=== PATIENT | female | born 1965 | race Caucasian/White ===

== ENCOUNTER 2018-12-12 10:17 | Emergency (ER) | payer OTHER ==
[~2018-12-12] VITALS: Ht 172.7 cm; Wt 83.5 kg
--- OUTSIDE RECORDS SUMMARY | 2018-12-12 10:20 | XMS ---
PreManage Notification: MARCIN TRAYLOR [employer] Events No recent Security Events currently on file CRITERIA MET - [facility] 2 Visits in 30 Days CARE PROVIDERS SK[facility] PHONE: Unknown FREDERICK JARAMILLO [facility] PHONE: Unknown Zac has no Care Guidelines for this patient. [place] VISIT COUNT (12 MO.) [employer] TOTAL 2 NOTE: Visits indicate total known visits. ED/UCC VISIT TRACKING (12 MO.) 12/12/2018 10:18 [facility] [place] TYPE: Emergency COMPLAINT: - RAPID HEARTRATE 12/06/2018 16:03 [facility] OR TYPE: Emergency DIAGNOSES: - Migraine with aura, not intractable, without status migrainosus - CHEST PAIN ARM NUMBNESS BLURRED VISION - Other chest pain INPATIENT VISIT TRACKING (12 MO.) No inpatient visits to display in this time frame [email or web address]
[2018-12-12] MEDS ORDERED: DOXYCYCLINE HY100 MG PO (10:40)
[2018-12-12] MEDS ORDERED: ALPRAZOLAM OD0.25 MG PO (10:40)
[2018-12-12] MEDS ORDERED: COREG3.125 MG PO (11:39)
--- NOTE | 2018-12-12 13:40 | EKG ---
[facility] [address] [facility] [place], [place] [address] Signed Sinus tachycardia Nonspecific ST abnormality Abnormal ECG No previous ECGs available Confirmed by SARAH ONEILL DO ([id number]) on 12/12/2018 1:40:14 PM Electronically Signed By: SARAH ONEILL DO 12/12/18 1340 PATIENT NAME: MARCIN TRAYLOR Electrocardiogram DATE OF : 67 PHYSICIAN: SARAH ONEILL DO REPORT #: [id number] REPORT IS CONFIDENTIAL AND NOT TO BE RELEASED WITHOUT AUTHORIZATION
== END 2018-12-12 11:53 | disposition home or self-care (01) ==
LOC: ED 10:17
DX: R00.0 Tachycardia, unspecified (principal); F41.9 Anxiety disorder, unspecified; Z88.2 Allergy status to sulfonamides; Z88.0 Allergy status to penicillin; Z91.040 Latex allergy status; Z91.018 Allergy to other foods; Z91.048 Other nonmedicinal substance allergy status
CPT/HCPCS: 71045; 80053; 84484; 85025; 93005; 93010; 96374; 96375; 99285-25; J2060; J2405

== ENCOUNTER 2019-12-12 23:15 | Emergency (ER) | payer OTHER ==
[~2019-12-12] VITALS: Ht 172.7 cm; Wt 83.5 kg
[~2019-12-12 23:15] MED LIST: ALPRAZOLAM OD0.25 MG PO; COREG3.125 MG PO; DOXYCYCLINE HY100 MG PO
[2019-12-13] MEDS ORDERED: ZOFRAN4 MG PO (01:44)
--- NOTE | 2019-12-13 07:46 | EKG ---
[facility] [address] [place] [address] Signed Normal sinus rhythm Nonspecific ST abnormality Abnormal ECG When compared with ECG of 12-DEC-2018 10:27, Vent. rate has decreased BY 37 BPM Confirmed by ALEJANDRO SOSA MD ([id number]) on 12/13/2019 7:46:27 AM Electronically Signed By: ALEJANDRO SOSA MD 12/13/19 0746 PATIENT NAME: MARCIN TRAYLOR Electrocardiogram DATE OF : 67 PHYSICIAN: ALEJANDRO SOSA MD REPORT #: [id number] REPORT IS CONFIDENTIAL AND NOT TO BE RELEASED WITHOUT AUTHORIZATION
== END 2019-12-13 02:10 | disposition home or self-care (01) ==
LOC: ED 23:15
DX: R55 Syncope and collapse (principal); R11.0 Nausea; I10 Essential (primary) hypertension; Z88.2 Allergy status to sulfonamides; Z88.8 Allergy status to other drugs, medicaments and biological substances; Z91.040 Latex allergy status; Z88.0 Allergy status to penicillin; Z91.018 Allergy to other foods; Z79.899 Other long term (current) drug therapy
CPT/HCPCS: 70450; 80053; 81001; 83735; 84484; 85025; 93005; 93010; 96361; 96374; 99284-25; J2405; J7030